=== PATIENT | female | born 2000 | race African-American/Black ===

== ENCOUNTER 2022-04-28 13:17 | Emergency (ER) | payer MEDICAID ==
[~2022-04-28] VITALS: Ht 162.6 cm; Wt 65.8 kg
--- NOTE | 2022-04-28 13:24 | NUR ---
PATIENT BIBA TO BED 10
[2022-04-28 13:26] VITALS: BP 112/54
--- NOTE | 2022-04-28 13:44 | NUR ---
AMBULATED TO RESTROOM WITH STEADY GAIT
--- NOTE | 2022-04-28 13:50 | NUR ---
21 Y/O FEMALE BIBA FOR NEAR SYNCOPAL EPISODE AT WORK TODAY. STATES SHE FELT SUDDEN ONSET OF DIZZINESS AND LIGHTHEADEDNESS SO SHE SAT DOWN, THEN WHEN STANDING AGAIN VISION BECAME BLURRED AND DIZZINESS WORSENED. REPORTS HAVING SIMILAR EPISODE 2 WEEKS AGO AFTER HAVING STOMACH FLU. STATES SHE SAW PCP ON SATURDAY FOR SIMILAR SYMPTOMS AND WAS ADVISED TO HAVE BLOOD WORK DONE. REPORTS SMOKING MARIJUANA THIS MORNING. DENIES PAIN, FEVER, CHILLS, NVD, HEADACHE. DENIES DIZZINESS UPON ASSESSMENT. NKA PMH: DENIES
--- NOTE | 2022-04-28 13:58 | NUR ---
LAB AT BEDSIDE
[2022-04-28 14:26] LABS: BASOPHILS % (AUTO) 0.2 % (0.0-2.0); EOSINOPHILS % (AUTO) 0.2 % (0.0-4.0); HEMATOCRIT 35.2 % (36-48); HEMOGLOBIN 11.5 g/dL (12.0-16.0); LYMPHOCYTES # (AUTO) 1.3 K/uL (2.5-16.5); MEAN CORPUSCULAR HEMOGLOBIN 28 pg (27-31); MEAN CORPUSCULAR HGB CONC 33 g/dL (33-37); MEAN CORPUSCULAR VOLUME 84.2 fL (80-94); MONOCYTES # (AUTO) 0.4 K/uL (0.8-1.0); MONOCYTES % (AUTO) 8.2 % (1.7-9.3); NEUTROPHILS # (AUTO) 3.4 K/uL (1.8-7.7); NEUTROPHILS % (AUTO) 65.4 % (42.2-75.2); PLATELET COUNT (AUTO) 283 K/uL (140-450); RED BLOOD CELL COUNT(AUTO) 4.19 MIL/uL (4.20-5.40); WHITE BLOOD COUNT (AUTO) 5.1 K/uL (4.5-11.0)
[2022-04-28 14:42] LABS: ANION GAP 12.4 (8-16); CARBON DIOXIDE 26.7 mmol/L (21-32); CREATININE 0.9 mg/dL (0.6-1.3); POTASSIUM 4.1 mmol/L (3.5-5.1)
[2022-04-28 14:55] VITALS: BP 118/53
--- NOTE | 2022-04-28 14:55 | NUR ---
Patient discharged with v/s stable. Written and verbal after care instructions given and explained. Patient verbalized understanding. Ambulatory with steady gait. All questions addressed prior to discharge. Advised to follow up with PMD.
== END 2022-04-28 14:55 | disposition home or self-care (01) ==
LOC: MED 13:17
DX: R55 Syncope and collapse (principal); D64.9 Anemia, unspecified; E86.0 Dehydration
CPT/HCPCS: 36415; 80048; 81002; 81025; 85025; 93005; 99284